=== PATIENT | female | born 1990 | race Caucasian/White ===

== ENCOUNTER 2017-01-11 18:53 | Emergency (ER) | payer MEDICAID ==
[2017-01-11 19:26] VITALS: O2SAT 98
--- NOTE | 2017-01-11 19:48 | C.PDOC ---
History Of Present Illness A 26 y/o female c/o abdominal pain for 2 days. Pt notes the complaint as a dull , cramping, intermittent pain that is 2/10 in discomfort. Pt denies fever, chills, change in bowel habits, nausea, vomiting, diarrhea, dysuria, hematuria, vaginal bleeding or discharge. Time Seen by Provider: 01/11/17 19:47 Chief Complaint (Nursing): Abdominal Pain History Per: Patient History/Exam Limitations: no limitations Onset/Duration Of Symptoms: Days, Intermittent Episodes Current Symptoms Are (Timing): Still Present Severity: Mild Pain Scale Rating Of: 2 Location Of Pain/Discomfort: Diffuse Quality Of Discomfort: Dull, Cramping Associated Symptoms: denies: Fever, Chills, Nausea, Vomiting, Diarrhea, Constipation Recent travel outside of the [place]: No Additional History Per: Patient Abnormal Vaginal Bleeding: No Past Medical History Reviewed: Historical Data, Nursing Documentation, Vital Signs Vital Signs: Last Vital Signs Temp 98.9 F 01/11/17 19:23 Pulse 95 H 01/11/17 19:23 Resp 20 01/11/17 19:23 BP 145/91 H 01/11/17 19:23 Pulse Ox 98 01/11/17 22:46 - Medical History PMH: Bronchitis, Migraine Family History: States: Unknown Family Hx - Social History Hx Tobacco Use: No Hx Alcohol Use: Yes Hx Substance Use: No - Immunization History Hx Tetanus Toxoid Vaccination: No Hx Influenza Vaccination: No Hx Pneumococcal Vaccination: No Review Of Systems Constitutional: Negative for: Fever, Chills Gastrointestinal: Positive for: Abdominal Pain. Negative for: Nausea, Vomiting , Diarrhea, Constipation Genitourinary: Negative for: Dysuria, Hematuria, Vaginal Discharge, Vaginal Bleeding Physical Exam - Physical Exam Appears: Non-toxic, No Acute Distress Skin: Warm, Dry Head: Normacephalic Eye(s): bilateral: Normal Inspection Neck: Trachea Midline, Supple Chest: Symmetrical Cardiovascular: Rhythm Regular, No Murmur Respiratory: No Rales, No Rhonchi, No Wheezing Gastrointestinal/Abdominal: Soft, Tenderness (Mild LLQ tenderness), No Guarding , No Rebound Neurological/Psych: Oriented x3, Normal Speech Gait: Steady ED Course And Treatment - Laboratory Results Result Diagrams: 01/11/17 20:45 01/11/17 20:45 O2 Sat by Pulse Oximetry: 98 (RA) Pulse Ox Interpretation: Normal - CT Scan/US CT Abd/Pel w/ contrast Other Rad Studies (CT/US): Interpreted By Me, Read By Radiologist CT/US Interpretation: EXAM: CT Abdomen and Pelvis With Intravenous Contrast. CLINICAL HISTORY: 26 years old, female; Pain; Abdominal pain; Localized; Left lower quadrant (llq); Additional info: Llq. pain. TECHNIQUE: Axial computed tomography images of the abdomen and pelvis with intravenous contrast. This CT. exam was performed using one or more of the following dose reduction techniques: automated. exposure control, adjustment of the mA and/or kV according to patient size, and/or use of iterative. reconstruction technique. Coronal and sagittal reformatted images were created and reviewed. CONTRAST: 100 mL of visipaque 320 administered intravenously. COMPARISON: No relevant prior studies available. FINDINGS: Lower thorax: The bilateral lung bases are clear. ABDOMEN: Liver: No acute findings. Gallbladder and bile ducts: The gallbladder is decompressed. No calcified stones. No significant. intra- or extrahepatic biliary ductal dilation. Pancreas: Enhances homogeneously. No ductal dilation. No discrete mass. Spleen: No acute findings. Adrenals: No acute findings. Kidneys and ureters: 19 millimeter focus of decreased attenuation within the interpolar region of the. right kidney, too small to further characterize on the current examination. No hydronephrosis or renal. calculi. PELVIS: Bladder: No acute findings. Reproductive: A 22 mm involuting cyst is identified within the right ovary with surrounding free fluid. Appendix: The air filled appendix is of normal caliber (series 3, image 140; series 601, image 72). ABDOMEN and PELVIS: Stomach and bowel: No obstruction. Small bowel wall thickening within the left mid abdomen but no. surrounding inflammation or fluid to confirm an acute enteritis. Peritoneum: As above. Lymph nodes: No pathologically enlarged lymph nodes. Vasculature: Unremarkable. Bones: No acute fracture. IMPRESSION: 22 mm involuting cyst within the right ovary with surrounding free fluid. Mural thickening within multiple loops of small bowel within the mid abdomen, to the left of midline. without surrounding inflammation or fluid to confirm an acute enteritis. 19 mm focus of decreased attenuation within the interpolar region of the right kidney for which. dedicated (nonemergent) ultrasound is recommended for further characterization. Reevaluation Time: 22:47 Reassessment Condition: Improved Medical Decision Making Medical Decision Making: Upon provider reevaluation patient is feeling better, is medically stable, and requires no further treatment in the ED at this time. Patient will be discharged home with Rx for naprosyn . Counseling was provided and all questions were answered regarding diagnosis and need for follow up with dr adams. There is agreement to discharge plan. Return if symptoms persist or worsen. Disposition Counseled Patient/Family Regarding: Studies Performed, Diagnosis, Need For Followup, Rx Given - Disposition Referrals: Sosa Adams MD [Non-Staff] - Disposition: HOME/ ROUTINE Disposition Time: 19:48 Condition: FAIR Prescriptions: Naproxen [Naprosyn] 1 tab PO BID PRN #25 tab PRN Reason: Pain Instructions: Abdominal Pain (ED), Ovarian Cyst (ED) - Clinical Impression Clinical Impression: Abdominal pain - Scribe Statement The provider has reviewed the documentation as recorded by the Scribe Bhavana peralta All medical record entries made by the Scribe were at my direction and personally dictated by me. I have reviewed the chart and agree that the record accurately reflects my personal performance of the history, physical exam, medical decision making, and the department course for this patient. I have also personally directed, reviewed, and agree with the discharge instructions and disposition.
[2017-01-11] MEDS ORDERED: Sodium Chloride 0.9% 1,000 ML IV ONE (20:00)
[2017-01-11] MEDS ORDERED: Sodium Chloride 0.9% 1,000 ML ONE (20:14)
[2017-01-11 20:53] LABS: BASO % 0.2 % (0.0-2.0); EOS # 0.2 K/uL (0.0-0.7); EOS % 2.4 % (0.0-4.0); HEMATOCRIT 38.3 % (34.0-47.0); LYMPH # 2.4 K/uL (1.0-4.3); LYMPH % 31.3 % (20.0-40.0); MEAN CELL VOLUME 83.4 fL (81.0-99.0); MEAN CORPUSCULAR HEMOGLOBIN 27.6 pg (27.0-31.0); MEAN CORPUSCULAR HGB CONC 33.1 g/dL (33.0-37.0); MEAN PLATELET VOLUME 9.8 fL (7.2-11.7); MONO # 0.6 K/uL (0.0-0.8); MONO % 7.4 % (0.0-10.0); RED CELL DISTRIBUTION WIDTH 13.9 % (11.5-14.5); WHITE BLOOD COUNT 7.5 K/uL (4.8-10.8)
[2017-01-11 20:56] LABS: RBC URINE < 1 /hpf (0-3); URINE BILIRUBIN NEGATIVE (NEGATIVE); URINE BLOOD NEGATIVE (NEGATIVE); URINE COLOR Straw (YELLOW); URINE GLUCOSE (UA) NORMAL (Normal); URINE KETONE NEGATIVE (NEGATIVE); URINE LEUKOCYTE ESTERASE NEG Leu/uL (Negative); URINE PROTEIN NEGATIVE (NEGATIVE); URINE UROBILINOGEN NORMAL mg/dL (0.2-1.0); WBC URINE 2 /hpf (0-5)
[2017-01-11 20:58] LABS: CHLORIDE 101 mmol/L (98-107)
[2017-01-11 20:59] LABS: POTASSIUM 3.7 mmol/L (3.6-5.2); SODIUM 137 mmol/L (132-148)
[2017-01-11 21:01] LABS: ALB/GLOB RATIO 1.3 (1.0-2.1); ALKALINE PHOSPHATASE 78 U/L (38-126); AST/SGOT 24 U/L (14-36); BILIRUBIN,TOTAL 0.8 mg/dL (0.2-1.3); BLOOD UREA NITROGEN 11 mg/dL (7-17); CARBON DIOXIDE 26 mmol/L (22-30); GFR AFRICAN-AMERICAN > 60; TOTAL PROTEIN 7.4 g/dL (6.3-8.3)
[2017-01-11 21:02] LABS: ALT/SGPT 28 U/L (9-52); CALCIUM 8.6 mg/dl (8.6-10.4); GLUCOSE,RANDOM 85 mg/dL (65-105)
[2017-01-11] MEDS ORDERED: Iodixanol 320 MG/ML 100 ML BOTTLE IV ONE (21:16)
--- NOTE | 2017-01-11 22:42 | CT ---
EXAM: CT Abdomen and Pelvis With Intravenous Contrast CLINICAL HISTORY: 26 years old, female; Pain; Abdominal pain; Localized; Left lower quadrant (llq); Additional info: Llq pain TECHNIQUE: Axial computed tomography images of the abdomen and pelvis with intravenous contrast. This CT exam was performed using one or more of the following dose reduction techniques: automated exposure control, adjustment of the mA and/or kV according to patient size, and/or use of iterative reconstruction technique. Coronal and sagittal reformatted images were created and reviewed. CONTRAST: 100 mL of visipaque 320 administered intravenously. COMPARISON: No relevant prior studies available. FINDINGS: Lower thorax: The bilateral lung bases are clear. ABDOMEN: Liver: No acute findings. Gallbladder and bile ducts: The gallbladder is decompressed. No calcified stones. No significant intra- or extrahepatic biliary ductal dilation. Pancreas: Enhances homogeneously. No ductal dilation. No discrete mass. Spleen: No acute findings. Adrenals: No acute findings. Kidneys and ureters: 19 millimeter focus of decreased attenuation within the interpolar region of the right kidney, too small to further characterize on the current examination. No hydronephrosis or renal calculi. PELVIS: Bladder: No acute findings. Reproductive: A 22 mm involuting cyst is identified within the right ovary with surrounding free fluid. Appendix: The air filled appendix is of normal caliber (series 3, image 140; series 601, image 72). ABDOMEN and PELVIS: Stomach and bowel: No obstruction. Small bowel wall thickening within the left mid abdomen but no surrounding inflammation or fluid to confirm an acute enteritis. Peritoneum: As above. Lymph nodes: No pathologically enlarged lymph nodes. Vasculature: Unremarkable. Bones: No acute fracture. IMPRESSION: 22 mm involuting cyst within the right ovary with surrounding free fluid. Mural thickening within multiple loops of small bowel within the mid abdomen, to the left of midline without surrounding inflammation or fluid to confirm an acute enteritis. 19 mm focus of decreased attenuation within the interpolar region of the right kidney for which dedicated (nonemergent) ultrasound is recommended for further characterization.
[2017-01-11 23:03] VITALS: BP 119/71; PULSE 80; RESP 19; TEMP 97.6
== END 2017-01-11 23:03 | disposition home or self-care (01) ==
LOC: C.ER 18:53
DX: R10.32 Left lower quadrant pain (principal)
CPT/HCPCS: 74177; 80053; 81001; 83690; 84703; 85025; 96361; 96374; 99284; J7040; Q9967